=== PATIENT | male | born 1995 | race Hispanic/Latino ===

== ENCOUNTER 2024-03-20 04:49 | Emergency (ER) | payer MEDICAID ==
[~2024-03-20] VITALS: Ht 182.9 cm; Wt 104.3 kg
--- NOTE | 2024-03-20 05:16 | ERN ---
ED Note History of Present Illness Stated Complaint: SOB, COUGH, N/V ONSET THIS AM Chief Complaint: Multiple Complaints Time Seen by MD: 05:10 Dictation: This is a 29-year-old male who presented to the emergency room via EMS with complaints of cough shortness of breath and fever. Apparently he also had nausea and vomitings he vomited twice this a.m. he took Tylenol at 1:00 a.m.. He denied any travel new pets at home he did not take any flu shots. He denied any mucopurulent sputum. Temperature 104.3 pulse 120 respirations 18 blood pressure 100 over 61 pulse oximetry 100% on room air Allergies: Coded Allergies: vancomycin (Unverified Allergy, Unknown, 03/20/24) Past Medical History Past Medical History: Asthma Surgical History: None RN Note Reviewed/Agreed w/PFSH: Yes Review of System Dictation Constitutional: Pause for fever,chills, and weight loss Eyes: Negative for injury, pain,redness, and discharge ENT: Negative for injury,pain or swelling Cardiovascular: Negative for chest pain, palpitations, and edema Respiratory: Positive for shortness of breath, cough, and wheezing, Abdomen/GI: Positive for , nausea, vomiting, denied diarrhea, and constipation abdominal pain Back: Negative for injury and pain : Negative for injury, bleeding and discharge MS/Extremity: Negative for injury and deformity Skin: Negative for rash, and discoloration Neuro: Negative for headache, weakness, numbness, tingling, and seizure Psych: Negative for suicide ideation, homicidal ideation, and hallucinations Initial Vital Sign VS Vital Signs Date Time Temp Pulse Resp B/P (MAP) Pulse Ox O2 Delivery O2 Flow Rate FiO2 03/20/24 04:54 104.4 120 18 100/61 100 Room Air* 0 21 Physical Exam Dictation General: awake, alert, NAD ill-appearing face appears flushed Head/Face: Normocephalic, atraumatic Eyes: PERRL, EOMI, vision at baseline ENT: oral cavity clear, TMs clear, no signs of infection Neck: Trachea midline, supple, no nuchal rigidity Cardiovascular: RRR, normal S1/S2, No MRGs, no JVD Respiratory: CTAB, no respiratory distress, No rales or wheezes Abdomen: Soft, non-tender, non-distended, normal bowel sounds, no guarding or rebound. Skin: Warm, dry, normal turgor, no rash MS/Extremity: Pulses equal, no cyanosis, neurovascular intact, FROM Neuro: COAx4, GCS 15, strength 5/5, CN 2-12 intact, normal cerebellar exam, normal gait, Psych: Normal behavior, mood, and affect normal Extremities-trace edema without any palpable cords, Homans sign is negative Results (Laboratory/Radiology) Laboratory/Radiology Laboratory Tests Test 03/20/24 06:00 03/20/24 07:34 White Blood Count 11.0 K/uL (4.8-10.8) H Red Blood Count 5.43 MIL/uL (4.50-6.20) Hemoglobin 13.6 g/dL (14.0-18.0) L Hematocrit 43.0 % (42-54) Mean Corpuscular Volume 79.2 fL (79-99) Mean Corpuscular Hemoglobin 25.0 pg (27.0-33.0) L Mean Corpuscular Hemoglobin Concent 31.6 g/dL (32.0-36.0) L Red Cell Distribution Width 16.5 % (11.0-15.5) H Platelet Count 186 K/uL (130-400) Mean Platelet Volume 11.1 fL (7.5-10.5) H Immature Granulocyte % (Auto) 0.3 % (0-1) Neutrophils (%) (Auto) 85.3 % (40.0-77.0) H Lymphocytes (%) (Auto) 9.4 % (21.0-51.0) L Monocytes (%) (Auto) 4.8 % (3.0-13.0) Eosinophils (%) (Auto) 0.0 % (0.0-8.0) Basophils (%) (Auto) 0.2 % (0.0-5.0) Neutrophils # (Auto) 9.4 K/uL (1.8-7.7) H Lymphocytes # (Auto) 1.0 K/uL (1.0-4.8) Monocytes # (Auto) 0.5 K/uL (0.1-1.0) Eosinophils # (Auto) 0.00 K/uL (0.00-0.70) Basophils # (Auto) 0.02 K/uL (0.00-0.20) Absolute Immature Granulocyte (auto 0.03 K/uL (0-1) Nucleated Red Blood Cells 0.0 % (0.0-0.19) White Cell Morphology Comment See comments Red Blood Cell Morphology ANISO 1+ Sodium Level 144 mmol/L (136-145) Potassium Level 3.8 mmol/L (3.5-5.1) Chloride Level 103 mmol/L (101-111) Carbon Dioxide Level 30 mmol/L (21-32) Blood Urea Nitrogen 8 mg/dL (7-18) Creatinine 0.8 mg/dL (0.5-1.3) Glomerular Filtration Rate Calc 123 mL/min (>90) Random Glucose 98 mg/dL (70-105) Lactic Acid Level 2.2 mmol/L (0.8-2.5) Total Calcium 8.4 mg/dL (8.5-10.1) L Total Creatine Kinase 75 U/L (21-232) Troponin I High Sensitivity 9 ng/L (4-75) Influenza Type A Antigen Positive For Type A Influenza Type B Antigen Negative For Type B SARS-CoV-2 Antigen (Rapid) PRESUMPTIVE NEGATIVE Group A Streptococcus Rapid negative (NEGATIVE) Urine Color LIGHT-YELLOW (YELLOW) Urine Appearance CLEAR (CLEAR) Urine pH 7.5 (5.0-8.0) Urine Specific [place] 1.018 (1.001-1.031) Urine Protein 10 mg/dL (NEGATIVE) H Urine Glucose (UA) NEGATIVE mg/dL (NEGATIVE) Urine Ketones NEGATIVE mg/dL (NEGATIVE) Urine Occult Blood MODERATE (NEGATIVE) H Urine Nitrate NEGATIVE (NEGATIVE) Urine Bilirubin NEGATIVE mg/dL (NEGATIVE) Urine Urobilinogen 0.2 mg/dL (0.2-1.0) Urine Leukocyte Esterase NEGATIVE Reese/uL Urine RBC 11-25 /HPF (0-1) H Urine WBC 2-5 /HPF (0-1) H Urine Squamous Epithelial Cells RARE /HPF (0-2) Urine Bacteria RARE /HPF (None Seen) Labs Reviewed?: Yes ED Course ED Course Orders Procedure Category Date Status Time Cbc With Differential LAB 03/20/24 Complete 05:10 Blood Cult [place] 03/20/24 In Process 05:10 Urinalysis Profile LAB 03/20/24 Complete 05:10 0.9%Nacl 1000ml (Ns PHA 03/20/24 Complete 1000ml) 05:30 Creatine Kinase, Total LAB 03/20/24 Complete 05:10 Troponin I High LAB 03/20/24 Complete Sensitivity 05:10 Lactic Acid LAB 03/20/24 Complete 05:10 Basic Metabolic Panel LAB 03/20/24 Complete 05:10 0.9%Nacl 1000ml (Ns PHA 03/20/24 Complete 1000ml) 05:30 Chest 1vw RAD 03/20/24 Resulted 05:10 Influenza Type A & B, LAB 03/20/24 Complete Rapid 05:10 Covid19 (Sars Antigen LAB 03/20/24 Complete Rapid) 05:10 Rapid (Group A Strep) LAB 03/20/24 Complete 05:10 Acetaminophen 500mg PHA 03/20/24 Complete Tab (Tylenol 500mg T 05:30 Ibuprofen 600 Mg PHA 03/20/24 Complete Tablet (Motrin) 06:00 Oseltamivir Phosphate PHA 03/20/24 Complete (Tamiflu) 08:00 0.9%Nacl 1000ml (Ns PHA 03/20/24 Complete 1000ml) 08:30 Current Medications Medications (Trade) Dose Ordered Sig/Carole Route PRN Reason Start Time Stop Time Status Last Admin Dose Admin Acetaminophen (TYLenol 500MG TAB) 1,000 mg ONCE ONCE PO 03/20/24 05:30 03/20/24 05:31 DC 03/20/24 05:40 Ibuprofen (moTRIN) 600 mg ONCE ONCE PO 03/20/24 06:00 03/20/24 06:01 DC 03/20/24 05:50 Oseltamivir Phosphate (Tamiflu) 75 mg ONCE ONCE PO 03/20/24 08:00 03/20/24 08:01 DC Sodium Chloride 1,000 ml @ 0 mls/hr ONCE ONCE IV 03/20/24 08:30 03/20/24 08:31 DC Sodium Chloride 3,129 ml @ 1,043 mls/hr ONCE ONCE IV 03/20/24 05:30 03/20/24 05:49 DC Sodium Chloride 3,129 ml @ 1,043 mls/hr ONCE ONCE IV 03/20/24 05:30 03/20/24 08:29 DC 03/20/24 05:40 Vital Signs Date Time Temp Pulse Resp B/P (MAP) Pulse Ox O2 Delivery O2 Flow Rate FiO2 03/20/24 08:13 101.8 114 20 104/41 96 Room Air* 0 21 03/20/24 06:37 100.8 113 16 113/64 98 Room Air* 0 21 03/20/24 06:00 103.1 129 18 124/64 97 Room Air* 0 21 03/20/24 05:50 104.0 03/20/24 04:55 104.4 120 18 100/61 100 Room Air 0 03/20/24 04:54 104.4 120 18 100/61 100 Room Air* 0 21 We will perform diagnostic labs, advanced imaging and administer medications according to the patient's complaint. Once the results are available, will review and personally interpreted the labs to rule out any acute life- threatening emergency the trach require immediate intervention and treatment. I will then re-evaluate the patient after treatment and diagnostic exams have return to determine whether the patient requires any further testing, can safely be discharged home or need further admission to hospital for additional treatment and evaluation. [place] [address] hemoglobin 13.6 platelets 186. BNP 7 is within normal limits. Medical Decision Making MDM This is a 29-year-old male who presented to the emergency room via EMS with complaints of cough shortness of breath and fever. Apparently he also had nause a and vomitings he vomited twice this a.m. he took Tylenol at 1:00 a.m.. He denied any travel new pets at home he did not take any flu shots. He denied any mucopurulent sputum. Temperature 104.3 pulse 120 respirations 18 blood pressure 100 over 61 pulse oximetry 100% on room air I assumed care for this patient is at 7:00 a.m. from previous doctor. Patient presented with a fever, tachycardia. He was found to have flu A positive. He received 3 L IV fluids, he remains tachycardic and febrile. I decided to keep patient on IV fluids, oseltamivir given. Tylenol p.r.n. for fever. We will recheck vital signs and if patient's improves he will be discharged home. Problem List Problem List: (1) Sepsis (2) Fever DX & DISP Disposition: Discharge Departure Impression: Primary Impression: Sepsis Additional Impressions: Fever, Influenza A Condition: Stable Scripts Acetaminophen (Tylenol) 500 Mg Tab 1 TAB PO Q6HPRN PRN for pain or fever for 5 Days, #30 TAB 0 Refills Prov: ALVINA LEÓN MD 03/20/24 Oseltamivir Phosphate (Tamiflu Susp) 75 Mg Susp 1 CAP PO BID for 5 Days, #10 CAP 0 Refills Prov: ALVINA LEÓN MD 03/20/24 Additional Instructions: RETURN TO ER FOR ANY ACUTE OR WORSENING SYMPTOMS. FOLLOW-UP IN 1-2 DAYS WITH PRIMARY PROVIDER FOR RECHECK OF TODAY'S SYMPTOMS. Time of Disposition: 08:41 ELIZABETH JEFFERY MD Mar 20, 2024 05:16 ALVINA LEÓN MD Mar 20, 2024 08:42
[2024-03-20] MEDS ORDERED: 0.9%NACL 1000ML 3,129 ML IV ONE (05:30)
[2024-03-20] MEDS: acetaMINOPHEN 500 MG TABLET PO ONE (05:40)
[2024-03-20] MEDS: 0.9%NACL 1000ML 3,129 ML IV ONE (05:40)
[2024-03-20] MEDS: ibuPROFEN 600 MG TABLET PO ONE (05:50)
[2024-03-20 06:16] LABS: BASOPHILS # (AUTO) 0.02 K/uL (0.00-0.20); BASOPHILS % (AUTO) 0.2 % (0.0-5.0); IMMATURE GRANULOCYTE ABSOLUTE 0.03 K/uL (0-1); LYMPHOCYTES % (AUTO) 9.4 % (21.0-51.0); MEAN CORPUSCULAR HGB CONC 31.6 g/dL (32.0-36.0); MEAN CORPUSCULAR VOLUME 79.2 fL (79-99); MONOCYTES # (AUTO) 0.5 K/uL (0.1-1.0); MONOCYTES % (AUTO) 4.8 % (3.0-13.0); NEUTROPHILS # (AUTO) 9.4 K/uL (1.8-7.7); NEUTROPHILS % (AUTO) 85.3 % (40.0-77.0); PLATELET COUNT (AUTO) 186 K/uL (130-400); RED BLOOD CELL COUNT(AUTO) 5.43 MIL/uL (4.50-6.20); RED CELL DISTRIBUTION WIDTH 16.5 % (11.0-15.5)
[2024-03-20 06:27] VITALS: TEMP 100.7
[2024-03-20 06:29] LABS: CREATININE 0.8 mg/dL (0.5-1.3); POTASSIUM 3.8 mmol/L (3.5-5.1)
[2024-03-20 06:52] LABS: RAPID GROUP A STREP negative (NEGATIVE)
[2024-03-20 07:03] LABS: COVID19 (SARS ANTIGEN RAPID) PRESUMPTIVE NEGATIVE (NEGATIVE); INFLUENZA TYPE B Negative For Type B (NEGATIVE)
[2024-03-20 07:31] LABS: INFLUENZA TYPE A Positive For Type A (NEGATIVE)
--- NOTE | 2024-03-20 08:16 | HMCIMG ---
PORTABLE CHEST RADIOGRAPH INDICATION: sepsis COMPARISON: None FINDINGS: Heart size is normal. The pulmonary vascularity and tabatha appear normal. Linear opacities at the left lung base without consolidation. No significant pleural effusion noted. No pneumothorax detected. IMPRESSION: Left lung base scarring and/or atelectasis, without coalescent pneumonia.
[2024-03-20 08:27] LABS: APPEARANCE,URINE CLEAR (CLEAR); BILIRUBIN,URINE NEGATIVE (NEGATIVE); COLOR,URINE LIGHT-YELLOW (YELLOW); GLUCOSE, URINE (UA) NEGATIVE (NEGATIVE); KETONES,URINE NEGATIVE (NEGATIVE); LEUKOCYTE ESTERASE ,URINE NEGATIVE Leu/uL (NEGATIVE); NITRATE,URINE NEGATIVE (NEGATIVE); OCCULT BLOOD,URINE MODERATE (NEGATIVE); PH,URINE 7.5 (5.0-8.0); PROTEIN,URINE 10 mg/dL (NEGATIVE); UROBILINOGEN,URINE 0.2 mg/dL (0.2-1.0)
[2024-03-20 08:30] LABS: ADD UA MICROSCOPIC YES
[2024-03-20 08:31] LABS: BACTERIA,URINE RARE /HPF (None Seen); MUCUS,URINE RARE LPF (None Seen); SQUAMOUS EPITHELIAL CELL,UR RARE /HPF (0-2)
[2024-03-20] MEDS ORDERED: OSELT15L PO (08:42)
[2024-03-20] MEDS ORDERED: ACET-66 PO (08:42)
[2024-03-20] MEDS: OSELTAMIVIR PHOSPHATE 75 MG CAP PO ONE (08:45)
[2024-03-20] MEDS: 0.9%NACL 1000ML 1,000 ML IV ONE (08:45)
[2024-03-20 10:20] VITALS: BP 115/52; PULSE 100; RESP 20; TEMP 99.9; O2SAT 95
== END 2024-03-20 10:58 | disposition home or self-care (01) ==
LOC: EDH 04:49
DX: A41.89 Other specified sepsis (principal); R50.9 Fever, unspecified; J10.1 Influenza due to other identified influenza virus with other respiratory manifestations; J45.909 Unspecified asthma, uncomplicated; Z88.1 Allergy status to other antibiotic agents; Z20.822 Contact with and (suspected) exposure to COVID-19
CPT/HCPCS: 99285; 96360; 71045; 96361; 87426; 82550; 84484; 80048; 85025; 87040 ×2; 87880; 87804 ×2; 83605; 81001; 36415; J7030; 99284